=== PATIENT | female | born 1970 | race Caucasian/White ===

== ENCOUNTER 2018-07-04 23:52 | Inpatient (IN) | END 2018-07-06 20:30 | disposition home or self-care (01) | DRG 812 ==

== ENCOUNTER 2018-07-26 10:32 | Emergency (ER) | END 2018-07-26 13:33 | disposition home or self-care (01) ==

== ENCOUNTER 2018-09-24 05:24 | Emergency (ER) | payer OTHER ==
[~2018-09-24] VITALS: Ht 157.5 cm; Wt 74.0 kg
[~2018-09-24 05:24] MED LIST: DOCU-216 PO; ORTNOV PO; UDFER PO
[2018-09-24 05:25] VITALS: Ht 157.5 cm; Wt 74.0 kg
[2018-09-24] MEDS ORDERED: SOD CHLORIDE 0.9% 1,000 ML IV STA (05:36)
[2018-09-24] MEDS ORDERED: MAGNESIUM SULFATE 1 GM/D5W 100 ML IVPB ONE (06:00)
[2018-09-24] MEDS ORDERED: ADENOSINE 6 MG INJ IV ONE (06:00)
--- NOTE | 2018-09-24 06:35 | ERD ---
ER Documentation Chief Complaint Chief Complaint PT C/O PALPITATIONS AAND SOB X30 MIN, DENIES ANY PAIN HPI 48-year-old female recent history of new onset SVT currently wearing a Holter monitor. The patient presents with palpitations. She notes some mild discomfort in the chest area. She describes mild associated shortness of delbert ath. No pleuritic pain fevers chills or cough. This is very similar to her presentation of SVT in July. She is not currently taking any medication for this. ROS All systems reviewed and are negative except as per history of present illness. Medications Home Meds Active Scripts Metoprolol Succinate* (Toprol XL*) 25 Mg Tab.sr.24h, 25 MG PO DAILY, #30 TAB Prov:SURENDRA HERNANDEZ MD 09/24/18 Norethindrone-Ethinyl Estradiol (Ortho-Novum ()) 0.035-1 Mg Tablet, 1 TAB PO DAILY, #28 TAB Prov:MYLES COLBY MD 07/26/18 Docusate Sodium (Dok) 100 Mg Capsule, 100 MG PO BID PRN for CONSTIPATION for 1 Day, CAP otc Prov:JIHAN DWYER MD 07/06/18 Ferrous Sulfate (Ferrous Sulfate) 300 Mg/5 Ml Liquid, 300 MG PO BID for 30 Days otc Prov:JIHAN DWYER MD 07/06/18 Allergies Allergies: Coded Allergies: No Known Allergy (Unverified , 07/26/18) PMhx/Soc History of Surgery: Yes (sx to stop vaginal bleeding (cannot remember name)) Anesthesia Reaction: No Hx Neurological Disorder: No Hx Respiratory Disorders: No Hx Cardiac Disorders: Yes (SVT) Hx Psychiatric Problems: No Hx Miscellaneous Medical Probl: No Hx Alcohol Use: No Hx Substance Use: No Hx Tobacco Use: No Smoking Status: Never smoker FmHx Family History: No diabetes Physical Exam Vitals Vital Signs Date Temp Pulse Resp B/P (MAP) Pulse Ox O2 O2 Flow FiO2 Time Delivery Rate 09/24/18 74 17 112/77 97 Room Air 06:10 (89) 09/24/18 96.6 210 19 135/55 100 05:25 (81) Physical Exam General: Well developed, well nourished, no acute distress Head: Normocephalic, atraumatic. Eyes: Pupils equally reactive, EOM intact ENT: Moist mucous membranes Neck: Supple, no lymphadenopathy Respiratory: Lungs clear bilaterally, no distress Cardiovascular: Tachycardia, no murmurs, rubs, or gallops Abdominal: Soft, non-tender, non-distended, no peritoneal signs : Deferred MSK: No edema, no unilateral swelling, 5/5 strength Neurologic: Alert and oriented, moving all extremities, normal speech, no focal weakness, no cerebellar signs Skin: No rash Psych: Normal mood Result Diagram: 09/24/18 0550 09/24/18 0550 Results 24 hrs Laboratory Tests Test 09/24/18 05:50 White Blood Count 10.3 10^3/ul Red Blood Count 4.92 10^6/ul Hemoglobin 12.8 g/dl Hematocrit 42.6 % Mean Corpuscular Volume 86.6 fl Mean Corpuscular Hemoglobin 26.0 pg Mean Corpuscular Hemoglobin Concent 30.0 g/dl Red Cell Distribution Width 17.6 % Platelet Count 225 10^3/UL Mean Platelet Volume 11.5 fl Immature Granulocytes % 0.200 % Neutrophils % 52.4 % Lymphocytes % 39.9 % Monocytes % 6.2 % Eosinophils % 1.2 % Basophils % 0.1 % Nucleated Red Blood Cells % 0.0 /100WBC Immature Granulocytes # 0.020 10^3/ul Neutrophils # 5.4 10^3/ul Lymphocytes # 4.1 10^3/ul Monocytes # 0.6 10^3/ul Eosinophils # 0.1 10^3/ul Basophils # 0.0 10^3/ul Nucleated Red Blood Cells # 0.0 10^3/ul Sodium Level 143 mmol/L Potassium Level 3.4 mmol/L Chloride Level 105 mmol/L Carbon Dioxide Level 21 mmol/L Anion Gap 17 Blood Urea Nitrogen 18 mg/dl Creatinine 0.91 mg/dl Est Glomerular Filtrat Rate mL/min > 60 mL/min Glucose Level 145 mg/dl Calcium Level 8.6 mg/dl Troponin I < 0.012 ng/ml Current Medications Medications Dose Sig/Alberto Start Time Status Last (Trade) Ordered Route PRN Stop Time Admin Dose Reason Admin Sodium 1,000 ml @ Q1H STAT 09/24/18 DC 09/24/18 Chloride 1,000 mls/hr IV 05:36 05:45 09/24/18 06:35 Adenosine 6 mg ONCE ONCE 1/13/19 DC 09/24/18 (Adenosine) IV 06:00 05:45 09/24/18 06:01 Magnesium 100 ml @ ONCE ONCE 09/24/18 DC 09/24/18 Sulfate/ 100 mls/hr IVPB 06:00 06:00 Dextrose 09/24/18 06:59 Potassium 20 meq ONCE STAT 09/24/18 DC Chloride PO 07:08 (Klor-Con 20) 09/24/18 07:09 Procedures/MDM EKG, MONITORS, & DIAGNOSTIC IMAGING: EKG: I reviewed and interpreted a 12-lead EKG. Rhythm: Narrow complex regular tachycardia in the 200s ST Changes: No contiguous ST segment elevations T waves: No contiguous T wave inversions Impression: SVT Repeat EKG EKG: I reviewed and interpreted a 12-lead EKG. Rhythm: Normal sinus rhythm ST Changes: No contiguous ST segment elevations T waves: No contiguous T wave inversions Impression: [No evidence of acute cardiac ischemia] Chest x-ray: I reviewed and interpreted a 1 view of the chest Mediastinum: No enlargement Cardiac silhouette: No cardiomegaly Airspace: Clear lung gant bilaterally without evidence of pneumothorax Bones: No evidence of fracture PROCEDURES: Chemical cardioversion Patient was verbally consented and states understanding of risk benefits and alternatives. Emergency airway equipment was available. The patient was placed on the monitor, pacer pads and defibrillator was attached to the patient. The patient was given 6 mg of adenosine via push with no successful response. The patient was given 12 mg of adenosine via push with appropriate response and conversion to normal sinus rhythm. The patient tolerated procedure well without complications. LAB INTERPRETATION: * Slight hypokalemia. Negative troponin. MEDICAL DECISION MAKING: Patient presents with an exacerbation of supraventricular tachycardia. The patient has a mild fluttering and discomfort in the chest and warrants troponin. I do not believe underlying etiology is cardiac ischemia. ER COURSE: * Upon arrival the patient was placed on the monitor and had cardioversion as documented above. The patient is now in normal sinus rhythm * Patient was given IV fluids and magnesium for stabilization * Potassium orally repleted * The patient continues to be resting comfortably with no evidence of endorgan dysfunction. * I discussed the case with Dr. Gilliam who agrees with the plan of care. He recommends metoprolol XL 25 once daily and follow-up on an outpatient basis with her community board member. I will also provide referral information to him. The patient cannot recall contact information for her managing provider CONSULTATION: Cardiology as above DISPOSITION PLAN: The patient does not have an identifiable emergent medical condition that williams ts inpatient hospitalization at this time. The patient is deemed safe for discharge with outpatient follow-up. We discussed follow up with the patient's primary care doctor within 24 to 48 hours as needed. We also discussed return to the emergency room for worsening symptoms or worsening condition. Outpatient referral: Cardiology Discharge Medications: Metoprolol XL 25 mg once daily Critical Care Note: Total time: 35 minutes Indication/Organ System Threat: Tachyarrhythmia requiring cardioversion I spent the above amount of critical care time with the patient, not including billable procedures. This included chart review, consultations, repeat bedside evaluations, and titration of appropriate medications to prevent cardiopulmonary or respiratory collapse. Departure Diagnosis: Primary Impression: SVT (supraventricular tachycardia) Additional Impression: Hypokalemia Condition: Stable SURENDRA HERNANDEZ MD Sep 24, 2018 06:35
[2018-09-24] MEDS ORDERED: ADENOSINE 3 MG/ML SYRINGE IV ONE (07:00)
[2018-09-24] MEDS ORDERED: POTASSIUM CHLORIDE (SR) 20 MEQ TAB PO STA (07:08)
[2018-09-24] MEDS ORDERED: METO-335 PO (07:09)
[2018-09-24 07:45] VITALS: BP 121/71; PULSE 75; RESP 17
== END 2018-09-24 07:08 | disposition home or self-care (01) ==
LOC: E/R 05:24
DX: I47.1 Supraventricular tachycardia (principal); E87.6 Hypokalemia
CPT/HCPCS: 36415; 80048; 84484; 85025; 93005; 96374; 96375; J0153; J3475; J7030; Z7502; Z7610

== ENCOUNTER 2018-10-19 00:22 | Observation (INO) | payer OTHER ==
[~2018-10-19] VITALS: Ht 157.5 cm; Wt 73.2 kg
[~2018-10-19 00:22] MED LIST changes: +METO-335 PO
[2018-10-19 00:28] VITALS: Ht 157.5 cm; Wt 73.2 kg
[2018-10-19] MEDS ORDERED: SOD CHLORIDE 0.9% 1,000 ML IV STA (00:29)
[2018-10-19] MEDS ORDERED: SOD CHLORIDE 0.9% 1,000 ML IV SCH (02:41)
--- NOTE | 2018-10-19 02:43 | ERD ---
ER Documentation Chief Complaint Chief Complaint paliptations,dizziness,scheduled for ablation in the morning HPI This is a 48-year female complains of palpitations and dizziness 1 hour prior to arrival. History of multiple bouts of SVT and is actually scheduled for an ablation in the morning. Denies fevers or chills denies chest pain. Does feel lightheaded and feel like she is going to pass out. ROS All systems reviewed and are negative except as per history of present illness. Medications Home Meds Active Scripts Metoprolol Succinate* (Toprol XL*) 25 Mg Tab.sr.24h, 25 MG PO DAILY, #30 TAB Prov:SURENDRA HERNANDEZ MD 09/24/18 Norethindrone-Ethinyl Estradiol (Ortho-Novum ()) 0.035-1 Mg Tablet, 1 TAB PO DAILY, #28 TAB Prov:MYLES COLBY MD 07/26/18 Docusate Sodium (Dok) 100 Mg Capsule, 100 MG PO BID PRN for CONSTIPATION for 1 Day, CAP otc Prov:JIHAN DWYER MD 07/06/18 Ferrous Sulfate (Ferrous Sulfate) 300 Mg/5 Ml Liquid, 300 MG PO BID for 30 Days otc Prov:JIHAN DWYER MD 07/06/18 Allergies Allergies: Coded Allergies: No Known Allergy (Unverified , 09/29/18) PMhx/Soc History of Surgery: Yes (sx to stop vaginal bleeding (cannot remember name)) Anesthesia Reaction: No Hx Neurological Disorder: No Hx Respiratory Disorders: No Hx Cardiac Disorders: Yes (SVT, PALPITATIONS) Hx Psychiatric Problems: No Hx Miscellaneous Medical Probl: Yes Hx Alcohol Use: No Hx Substance Use: No Hx Tobacco Use: No Smoking Status: Never smoker Physical Exam Vitals Vital Signs Date Temp Pulse Resp B/P (MAP) Pulse Ox O2 O2 Flow FiO2 Time Delivery Rate 10/19/18 76 15 113/81 100 Room Air 01:16 (92) 10/19/18 97.3 187 18 85/44 (58) 99 00:28 Physical Exam Const: No acute distress Head: Atraumatic Eyes: Normal Conjunctiva ENT: Normal External Ears, Nose and Mouth. Neck: Full range of motion. No meningismus. Resp: Clear to auscultation bilaterally Cardio: Regular rate and rhythm, no murmurs Abd: Soft, non tender, non distended. Normal bowel sounds Skin: No petechiae or rashes Back: No midline or flank tenderness Ext: No cyanosis, or edema Neur: Awake and alert Psych: Normal Mood and Affect Result Diagram: 10/19/1811210/19/18112 Results 24 hrs Laboratory Tests Test 10/19/18 01:13 White Blood Count 8.1 10^3/ul Red Blood Count 4.87 10^6/ul Hemoglobin 13.0 g/dl Hematocrit 41.4 % Mean Corpuscular Volume 85.0 fl Mean Corpuscular Hemoglobin 26.7 pg Mean Corpuscular Hemoglobin Concent 31.4 g/dl Red Cell Distribution Width 17.0 % Platelet Count 196 10^3/UL Mean Platelet Volume 11.3 fl Immature Granulocytes % 0.200 % Neutrophils % 72.9 % Lymphocytes % 20.2 % Monocytes % 6.0 % Eosinophils % 0.6 % Basophils % 0.1 % Nucleated Red Blood Cells % 0.0 /100WBC Immature Granulocytes # 0.020 10^3/ul Neutrophils # 5.9 10^3/ul Lymphocytes # 1.6 10^3/ul Monocytes # 0.5 10^3/ul Eosinophils # 0.1 10^3/ul Basophils # 0.0 10^3/ul Nucleated Red Blood Cells # 0.0 10^3/ul Sodium Level 140 mmol/L Potassium Level 3.9 mmol/L Chloride Level 108 mmol/L Carbon Dioxide Level 23 mmol/L Anion Gap 9 Blood Urea Nitrogen 17 mg/dl Creatinine 1.12 mg/dl Est Glomerular Filtrat Rate mL/min 52 mL/min Glucose Level 191 mg/dl Calcium Level 9.3 mg/dl Total Bilirubin 0.1 mg/dl Direct Bilirubin 0.00 mg/dl Indirect Bilirubin 0.1 mg/dl Aspartate Amino Transf (AST/SGOT) 28 IU/L Alanine Aminotransferase (ALT/SGPT) 27 IU/L Alkaline Phosphatase 74 IU/L Creatine Kinase 55 IU/L Creatine Kinase Index 1.1 Creatinine Kinase MB (Mass) 0.63 ng/ml Troponin I 0.018 ng/ml B-Type Natriuretic Peptide Pending Total Protein 7.8 g/dl Albumin 4.3 g/dl Globulin 3.50 g/dl Albumin/Globulin Ratio 1.22 Current Medications Medications Dose Sig/Alberto Start Time Status Last (Trade) Ordered Route PRN Stop Time Admin Dose Reason Admin Sodium 1,000 ml @ Q1H STAT 10/19/18 DC 10/19/18 Chloride 1,000 mls/hr IV 00:29 10/19/18 01:18 01:28 Procedures/MDM EKG: Rate/Rhythm: [Normal Sinus Rhythm] QRS, ST, T-waves: [No changes consistent w/ acute ischemia] Impression: [No evidence of ischemia or arrhythmia] Chest X-ray 1V Interpreted by me: Soft Tissue: No acute abnormalities Bones: No acute abnormalities Mediastinum/Cardiac Silhouette/Lungs: [No acute abnormalities] Emergency department course: Patient triaged immediately bed in the ER. Placed on front clerk. Intravenous access was established was started on IV fluids where she converted on her own. Blood pressure normalized as well. Medical decision makin-year-old female with severe SVT. Given her hypotension and severely elevated heart rates at the time of triage, patient will be admitted for further evaluation and management. Hospitalist made aware of patient's efficiency clerk who also has privileges here Departure Diagnosis: Primary Impression: Palpitations Condition: Serious KALEE ERICKSON Oct 19, 2018 02:43
[2018-10-19] MEDS ORDERED: NACL 0.9% 3 ML SYG IV SCH (03:00)
[2018-10-19] MEDS ORDERED: DOCUSATE SODIUM 100 MG CAP PO PRN (03:00)
[2018-10-19] MEDS ORDERED: NITROGLYCERIN (SL) 0.4 MG TAB SL PRN (03:00)
[2018-10-19] MEDS ORDERED: ACETAMINOPHEN 325 MG TAB PO PRN (03:00)
[2018-10-19] MEDS ORDERED: ONDANSETRON 4 MG INJ IV PRN (03:00)
[2018-10-19] MEDS ORDERED: ADENOSINE 6 MG INJ IV PRN (03:00)
[2018-10-19] MEDS ORDERED: BISACODYL (EC) 5 MG TAB PO PRN (03:00)
--- NOTE | 2018-10-19 03:53 | HP ---
Date/Time of Note Date/Time of Note DATE: 10/19/18 TIME: 03:38 Assessment/Plan VTE Prophylaxis SCD applied (from Nsg): Yes Pharmacological prophylaxis: NA/contraindicated Pharm contraindication: low risk/ambulating Lines/Catheters IV Catheter Type (from Nrsg): Saline Lock Assessment/Plan Hospital Course This is a 48-year female being admitted to the telemetry floor for: #1 SVT: Spontaneous conversion to normal sinus rhythm without any intervention. Patient did receive a bolus of normal saline. At the current time patient is in normal sinus rhythm. She reports feeling better. She is concerned though that she will miss her appointment for ablation this morning after that hospital. Will consult cardiology for further guidance. #2 History of anemia: Currently hemoglobin is 13 and MCV is within normal values. Resume ferrous sulfate as indicated #3 Irregular menstrual periods: Continue control as indicated outpatient #4 DVT GI prophylaxis: SCDs, no GI prophylaxis indicated CODE STATUS: Full code Further treatment strategy will be implemented for clinical course Result Diagram: 10/19/1811210/19/18 0113 Results 24hrs Laboratory Tests Test 10/19/18 01:13 White Blood Count 8.1 # Red Blood Count 4.87 Hemoglobin 13.0 Hematocrit 41.4 Mean Corpuscular Volume 85.0 Mean Corpuscular Hemoglobin 26.7 L Mean Corpuscular Hemoglobin Concent 31.4 L Red Cell Distribution Width 17.0 H Platelet Count 196 Mean Platelet Volume 11.3 H Immature Granulocytes % 0.200 Neutrophils % 72.9 Lymphocytes % 20.2 Monocytes % 6.0 Eosinophils % 0.6 Basophils % 0.1 Nucleated Red Blood Cells % 0.0 Immature Granulocytes # 0.020 Neutrophils # 5.9 Lymphocytes # 1.6 Monocytes # 0.5 Eosinophils # 0.1 Basophils # 0.0 Nucleated Red Blood Cells # 0.0 Sodium Level 140 Potassium Level 3.9 Chloride Level 108 Carbon Dioxide Level 23 Anion Gap 9 Blood Urea Nitrogen 17 Creatinine 1.12 H Est Glomerular Filtrat Rate mL/min 52 L Glucose Level 191 Calcium Level 9.3 Total Bilirubin 0.1 L Direct Bilirubin 0.00 Indirect Bilirubin 0.1 Aspartate Amino Transf (AST/SGOT) 28 Alanine Aminotransferase (ALT/SGPT) 27 Alkaline Phosphatase 74 Creatine Kinase 55 Creatine Kinase Index 1.1 Creatinine Kinase MB (Mass) 0.63 Troponin I 0.018 B-Type Natriuretic Peptide 255 H Total Protein 7.8 Albumin 4.3 Globulin 3.50 H Albumin/Globulin Ratio 1.22 HPI/ROS Admit Date/Time Admit Date/Time Hx of Present Illness Chief complaint: Dizziness, fast heart rate This is a 48-year female complains of palpitations and dizziness 1 hour prior to arrival. History of multiple bouts of SVT and is actually scheduled for an ablation in the [facility] and [facility]. Her bilingual nanny is Dr. Escudero.. Denies fevers or chills denies chest pain. Does feel lightheaded and feel like she is going to pass out. Patient arrived in the emergency department she was noted to be in SVT in the 180s. Patient spontaneously converted back to normal sinus rhythm. She was given a bolus of fluid. Currently at the bedside she has a normal sinus rhythm at approximately 80 bpm. At the current time patient reports that she feeling like her normal self. She reports that she stopped taking her metoprolol approximately 3-day goes ago as she was instructed to do so prior to her procedure. EKG performed in the ER showed normal sinus rhythm at approximately 65 bpm with no STfor loosening or T wave of normalities concerning for ischemia. Allergies: NKDA Medications: ferrous sulfate Metoprolol XL 25 mg Ortho-Novum control ROS Const: As per HPI Eyes : No pain discharge or redness or change in visual acuity ENT: No pain, sore throat, congestion, congestion, dysphagia or discharge Respiratory: No shortness of breath, cough, sputum, wheezing, or pleuritic pain Cardiovascular as per HPI GI : no change in appetite, abdominal pain, nausea, vomiting, diarrhea, constipation, or change in the color his stool Genitourinary: No dysuria, hematuria, flank pain , discharge or CVA tenderness Musculoskeletal: No joint pain, back pain, neck pain, restricted range of motion in neck or joints Skin: No rash, bruising or hives Neuro: No headache, dizziness, syncope, seizure, focal weakness Endocrine: No polyuria, polydipsia, temperature intolerance Psych: No hallucination, depression, anxiety or suicidal ideation PMH/Family/Social Past Medical History SVT, irregular menstrual periods, Anemia Medications Current Medications Adenosine (Adenosine) 6 mg PRN PRN IV SVT ; Start 10/19/18 at 03:00 Sodium Chloride 1,000 ml @ 80 mls/hr [id number] IV ; Start 10/19/18 at 02:41 IV Flush (NS 3 ml) 3 ml PER PROTOCOL IV ; Start 10/19/18 at 03:00 Ondansetron HCl (Zofran Inj) 4 mg Q6H PRN IV NAUSEA/VOMITING; Start 10/19/18 at 03:00 Nitroglycerin (Nitroglycerin (Sl Tab) 0.4 Mg) 1 tab Q5M PRN SL .CHEST PAIN; Start 10/19/18 at 03:00 Acetaminophen (Tylenol Tab) 650 mg Q6H PRN PO .PAIN 1-3 OR TEMP; Start 10/19/18 at 03:00 Docusate Sodium (Colace) 100 mg Q12H PRN PO .CONSTIPATION; Start 10/19/18 at 03:00 Bisacodyl (Dulcolax) 5 mg DAILY PRN PO .CONSTIPATION; Start 10/19/18 at 03:00 Coded Allergies: No Known Allergy (Unverified , 09/29/18) Past Surgical History History of vaginal procedure, unknown name Past Surgical Hx: other Family History Significant Family History: no pertinent family hx Social History Alcohol Use: none Smoking Status: Never smoker Drug Use: none Exam/Review of Systems Vital Signs Vitals Vital Signs Date Temp Pulse Resp B/P (MAP) Pulse Ox O2 O2 Flow FiO2 Time Delivery Rate 10/19/18 76 15 113/81 100 Room Air 01:16 (92) 10/19/18 97.3 00:28 Exam Exam General: Patient is a pleasant female currently lying in bed in no acute distress HEENT: Atraumatic, normocephalic. The pupils are equal, round and reactive. Extraocular motor are intact Neck: Supple with full range of motion. No rigidity or meningismus Chest: Nontender Lungs: Clear to auscultation bilaterally no crackles rales or wheezing Heart: Normal S1-S2, Regular rhythm and rate. No overt murmurs appreciated auscultation Abdomen: Soft , nontender, nondistended , bowel sounds are present. No guarding no rebound tenderness , No masses or organomegaly. No costovertebral temporal angle mass Extremities: Normal to inspection, no edema no cyanosis Neurologic: Normal mental status, speech normal, cranial nerves II through XII are intact, motor and sensory are intact, no focal weakness NIKKI,KAT Oct 19, 2018 03:48
[2018-10-19 05:09] VITALS: BP 107/74; PULSE 64; RESP 21
[2018-10-19] MEDS ORDERED: MULTI PO (05:09)
[2018-10-19] MEDS ORDERED: OMEG-135 PO (05:09)
--- NOTE | 2018-10-19 05:18 | DS ---
Date/Time of Note Date/Time of Note DATE: 10/19/18 TIME: 05:11 Discharge Summary Admission/Discharge Info Admit Date/Time 10/19/2018 Discharge Date/Time 10/19/2018 Discharge Diagnosis 1. SVTStable, converted spontaneously back to normal sinus rhythm. Patient Condition: Stable Hx of Present Illness Chief complaint: Dizziness, fast heart rate This is a 48-year female complains of palpitations and dizziness 1 hour prior to arrival. History of multiple bouts of SVT and is actually scheduled for an ablation in the [facility] and [facility]. Her head teacher is Dr. Escudero.. Denies fevers or chills denies chest pain. Does feel lightheaded and feel like she is going to pass out. Patient arrived in the emergency department she was noted to be in SVT in the 180s. Patient spontaneously converted back to normal sinus rhythm. She was given a bolus of fluid. Currently at the bedside she has a normal sinus rhythm at approximately 80 bpm. At the current time patient reports that she feeling like her normal self. She reports that she stopped taking her metoprolol approximately 3-day goes ago as she was instructed to do so prior to her procedure. EKG performed in the ER showed normal sinus rhythm at approximately 65 bpm with no STfor loosening or T wave of normalities concerning for ischemia. Allergies: NKDA Medications: ferrous sulfate Metoprolol XL 25 mg Ortho-Novum control Hospital Course This is a 48-year female being admitted to the telemetry floor for: #1 SVT: Spontaneous conversion to normal sinus rhythm without any intervention. Patient did receive a bolus of normal saline. At the current time patient is in normal sinus rhythm. She reports feeling better. She is concerned though that she will miss her appointment for ablation this morning after that hospital. Will consult cardiology for further guidance. #2 History of anemia: Currently hemoglobin is 13 and MCV is within normal values. Resume ferrous sulfate as indicated #3 Irregular menstrual periods: Continue control as indicated outpatient #4 DVT GI prophylaxis: SCDs, no GI prophylaxis indicated CODE STATUS: Full code Further treatment strategy will be implemented for clinical course Hospital course: Patient was admitted to the hospital. She remained in normal sinus rhythm throughout her stay. She did not require any intervention as there was no repeated SVT noted. She did receive a bolus of normal saline. I did speak with the patient's head teacher over the phone in regards to the patient. Patient is scheduled to have a ablation for SVT later this morning and was supposed to be at [facility] at 6 AM. She has been waiting for this procedure for approximately 4 months. As the patient remained in normal sinus rhythm and stable in the hospital both the head teacher and I agreed that the patient would be stable for discharge so that she can proceed to have her procedure done today. I did discuss the case with the patient and she is agreeable to have a who is at the bedside with her xm1 tank driver to [facility] immediately upon being discharged. She denies any chest pain or shortness of breath. Again she is stable at the current time. Home Meds Active Scripts Metoprolol Succinate* (Toprol XL*) 25 Mg Tab.sr.24h, 25 MG PO DAILY, #30 TAB Prov:SURENDRA HERNANDEZ MD 09/24/18 Norethindrone-Ethinyl Estradiol (Ortho-Novum ()) 0.035-1 Mg Tablet, 1 TAB PO DAILY, #28 TAB Prov:MYLES COLBY MD 07/26/18 Docusate Sodium (Dok) 100 Mg Capsule, 100 MG PO BID PRN for CONSTIPATION for 1 Day, CAP otc Prov:JIHAN DWYER MD 07/06/18 Ferrous Sulfate (Ferrous Sulfate) 300 Mg/5 Ml Liquid, 300 MG PO BID for 30 Days otc Prov:JIHAN DWYER MD 07/06/18 Reported Medications Multivitamins* (Theragran*) 1 Tab Tab, 1 TAB PO DAILY, TAB 10/19/18 [facility]-3 Fatty Acids/Fish Oil (Fish Oil 1,000 mg Capsule) 1 Each Capsule, 1 EACH PO, CAP 10/19/18 Primary Care Provider Spencer Escudero MD Time spent on discharge: > 30 minutes Pending Labs Laboratory Tests Test 10/19/18 01:13 White Blood Count 8.1 10^3/ul (4.8-10.8) Red Blood Count 4.87 10^6/ul (4.20-5.40) Hemoglobin 13.0 g/dl (12.0-16.0) Hematocrit 41.4 % (37.0-47.0) Mean Corpuscular Volume 85.0 fl (82.0-101.0) Mean Corpuscular Hemoglobin 26.7 pg (29.0-33.0) Mean Corpuscular Hemoglobin Concent 31.4 g/dl (32.0-37.0) Red Cell Distribution Width 17.0 % (11.5-14.5) Platelet Count 196 10^3/UL (140-415) Mean Platelet Volume 11.3 fl (7.4-10.4) Immature Granulocytes % 0.200 % (0.001-0.429) Neutrophils % 72.9 % (39.0-77.0) Lymphocytes % 20.2 % (15.0-51.0) Monocytes % 6.0 % (0.0-11.0) Eosinophils % 0.6 % (0.0-7.0) Basophils % 0.1 % (0.0-2.0) Nucleated Red Blood Cells % 0.0 /100WBC (0.0-0.0) Immature Granulocytes # 0.020 10^3/ul (0.0-0.031) Neutrophils # 5.9 10^3/ul (1.6-7.5) Lymphocytes # 1.6 10^3/ul (0.8-2.9) Monocytes # 0.5 10^3/ul (0.3-0.9) Eosinophils # 0.1 10^3/ul (0.0-0.5) Basophils # 0.0 10^3/ul (0.0-0.1) Nucleated Red Blood Cells # 0.0 10^3/ul (0.0-0.0) Prothrombin Time 13.1 Sec (11.9-14.9) Prothrombin Time Ratio 1.0 INR International Normalized Ratio 0.98 Activated Partial Thromboplast Time 24.8 Sec (23.0-35.0) Sodium Level 140 mmol/L (135-144) Potassium Level 3.9 mmol/L (3.5-5.1) Chloride Level 108 mmol/L (97-110) Carbon Dioxide Level 23 mmol/L (21-31) Anion Gap 9 (5-13) Blood Urea Nitrogen 17 mg/dl (7-20) Creatinine 1.12 mg/dl (0.44-1.00) Est Glomerular Filtrat Rate mL/min 52 mL/min (>60) Glucose Level 191 mg/dl (70-220) Calcium Level 9.3 mg/dl (8.4-10.2) Total Bilirubin 0.1 mg/dl (0.2-1.3) Direct Bilirubin 0.00 mg/dl (0.00-0.20) Indirect Bilirubin 0.1 mg/dl (0-1.1) Aspartate Amino Transf (AST/SGOT) 28 IU/L (15-46) Alanine Aminotransferase (ALT/SGPT) 27 IU/L (13-69) Alkaline Phosphatase 74 IU/L (42-121) Creatine Kinase 55 IU/L (23-200) Creatine Kinase Index 1.1 Creatinine Kinase MB (Mass) 0.63 ng/ml (0.0-2.4) Troponin I 0.018 ng/ml (0.000-0.120) B-Type Natriuretic Peptide 255 PG/ML (0-125) Total Protein 7.8 g/dl (6.1-8.1) Albumin 4.3 g/dl (3.3-4.9) Globulin 3.50 g/dl (1.3-3.2) Albumin/Globulin Ratio 1.22 KAT JORDAN Oct 19, 2018 05:18
--- NOTE | 2018-10-19 05:20 | PDOCDIS ---
Discharge Instructions DIAGNOSIS Discharge Diagnosis 1. SVTStable, converted spontaneously back to normal sinus rhythm. CONDITION [id number] Patient Condition: [id number] Stable HOME CARE INSTRUCTIONS: [id number] Diet Instructions: [id number] Low Fat /Cholesterol ACTIVITY: [id number] Activity Restrictions: [id number] Slowly Increase Activity FOLLOW UP/APPOINTMENTS Follow-up Plan Please proceed to [facility] for your scheduled cardiac ablation today at 6 AM with your breaker mechanic . Further instructions as per your breaker mechanic after your ablation. KAT JORDAN Oct 19, 2018 05:20
== END 2018-10-19 05:39 | disposition home or self-care (01) ==
LOC: E/R 00:22 → TEL 02:44 → E/R 05:42 → CANBEDREQ 07:14
PROVIDERS: ADMIT Family Medicine; ATTEND Family Medicine
DX: I47.1 Supraventricular tachycardia (principal); Z86.79 Personal history of other diseases of the circulatory system; N92.6 Irregular menstruation, unspecified
CPT/HCPCS: 36415; 71045; 80053; 80061; 82550; 82553; 83036; 83735; 83880; 84443; 84484; 85025; 85610; 85730; 93005; J7030; Z7500; Z7502; G0378

== ENCOUNTER 2019-03-03 01:20 | Emergency (ER) | payer OTHER ==
[~2019-03-03] VITALS: Ht 157.5 cm; Wt 77.4 kg
[~2019-03-03 01:20] MED LIST changes: -DOCU-216 PO; -METO-335 PO; +OMEG-135 PO
[2019-03-03 01:29] VITALS: Ht 157.5 cm; Wt 77.4 kg
[2019-03-03] MEDS ORDERED: SOD CHLORIDE 0.9% 1,000 ML IV STA (01:40)
--- NOTE | 2019-03-03 01:55 | ERD ---
ER Documentation Chief Complaint Chief Complaint intermittent episodes of palpitations since 2330 w/ mild CP. hx of SVT HPI This is a 48-year-old female with a history of SVT who presents to the emergency with 2-3 episodes of palpitations starting around midnight this morning. Patient denied any significant chest pain though it was noted in triage. She denies any pressure. She just noted palpitations. She states this is similar in the past to related episodes of SVT. She has sinus rhythm currently. She denies any prodrome of pleuritic pain fevers chills or cough, no headache. Patient feels at baseline now. ROS All systems reviewed and are negative except as per history of present illness. Medications Home Meds Active Scripts Norethindrone-Ethinyl Estradiol (Ortho-Novum ()) 0.035-1 Mg Tablet, 1 TAB PO DAILY, #28 TAB Prov:MYLES COLBY MD 07/26/18 Ferrous Sulfate (Ferrous Sulfate) 300 Mg/5 Ml Liquid, 300 MG PO BID for 30 Days otc Prov:JIHAN DWYER MD 07/06/18 Reported Medications [place]-3 Fatty Acids/Fish Oil (Fish Oil 1,000 mg Capsule) 1 Each Capsule, 1 EACH PO, CAP 10/19/18 Allergies Allergies: Coded Allergies: No Known Allergy (Unverified , 09/29/18) PMhx/Soc History of Surgery: Yes (sx to stop vaginal bleeding (cannot remember name)) Anesthesia Reaction: No Hx Neurological Disorder: No Hx Respiratory Disorders: No Hx Cardiac Disorders: Yes (SVT, PALPITATIONS) Hx Psychiatric Problems: No Hx Miscellaneous Medical Probl: Yes Hx Alcohol Use: No Hx Substance Use: No Hx Tobacco Use: No Smoking Status: Never smoker FmHx Family History: No diabetes Physical Exam Vitals Vital Signs Date Temp Pulse Resp B/P (MAP) Pulse Ox O2 O2 Flow FiO2 Time Delivery Rate 03/03/19 96.9 68 16 140/81 100 Room Air 01:32 (100) 03/03/19 96.9 69 16 141/85 100 01:29 (103) Physical Exam General: Well developed, well nourished, no acute distress Head: Normocephalic, atraumatic. Eyes: Pupils equally reactive, EOM intact ENT: Moist mucous membranes Neck: Supple, no lymphadenopathy Respiratory: Lungs clear bilaterally, no distress Cardiovascular: RRR, no murmurs, rubs, or gallops Abdominal: Soft, non-tender, non-distended, no peritoneal signs : Deferred MSK: No edema, no unilateral swelling, 5/5 strength Neurologic: Alert and oriented, moving all extremities, normal speech, no focal weakness, no cerebellar signs Skin: No rash Psych: Normal mood Result Diagram: 03/03/19 0138 03/03/19 0138 Results 24 hrs Laboratory Tests Test 03/03/19 01:38 White Blood Count 6.1 10^3/ul Red Blood Count 4.95 10^6/ul Hemoglobin 14.7 g/dl Hematocrit 44.9 % Mean Corpuscular Volume 90.7 fl Mean Corpuscular Hemoglobin 29.7 pg Mean Corpuscular Hemoglobin Concent 32.7 g/dl Red Cell Distribution Width 12.7 % Platelet Count 238 10^3/UL Mean Platelet Volume 10.9 fl Immature Granulocytes % 0.200 % Neutrophils % 50.8 % Lymphocytes % 38.7 % Monocytes % 8.0 % Eosinophils % 2.1 % Basophils % 0.2 % Nucleated Red Blood Cells % 0.0 /100WBC Immature Granulocytes # 0.010 10^3/ul Neutrophils # 3.1 10^3/ul Lymphocytes # 2.4 10^3/ul Monocytes # 0.5 10^3/ul Eosinophils # 0.1 10^3/ul Basophils # 0.0 10^3/ul Nucleated Red Blood Cells # 0.0 10^3/ul Sodium Level 145 mmol/L Potassium Level 4.2 mmol/L Chloride Level 106 mmol/L Carbon Dioxide Level 26 mmol/L Anion Gap 13 Blood Urea Nitrogen 20 mg/dl Creatinine 0.74 mg/dl Est Glomerular Filtrat Rate mL/min > 60 mL/min Glucose Level 100 mg/dl Calcium Level 9.5 mg/dl Troponin I < 0.012 ng/ml Current Medications Medications Dose Sig/Alberto Start Time Status Last (Trade) Ordered Route PRN Stop Time Admin Dose Reason Admin Sodium 1,000 ml @ Q1H STAT 03/03/19 03/03/19 Chloride 1,000 mls/hr IV 01:40 01:55 03/03/19 02:39 Procedures/MDM EKG, MONITORS, & DIAGNOSTIC IMAGING: EKG: I reviewed and interpreted a 12-lead EKG. Rhythm: Normal sinus rhythm ST Changes: No contiguous ST segment elevations T waves: No contiguous T wave inversions Impression: No evidence of acute cardiac ischemia Chest x-ray: I reviewed and interpreted a 1 view of the chest Mediastinum: No enlargement Cardiac silhouette: No cardiomegaly Airspace: Clear lung gant bilaterally without evidence of pneumothorax Bones: No evidence of fracture LAB INTERPRETATION: I reviewed the laboratory testing and it shows no evidence of acute process MEDICAL DECISION MAKING: Patient has nonspecific palpitations without chest pain. Symptoms are likely consistent with possible runs of SVT versus nonspecific palpitations. I do not believe her clinical exam and presentation is consistent with pulmonary embolism dissection or acute coronary syndrome. Reassurance has been provided. Basic blood work to rule out electrolyte disturbance or evidence of cardiac ischemia would be reasonable. No indication for several enzymes or inpatient hospitalization at this time. Outpatient cardiology follow-up as scheduled in April. I recommended earlier follow-up on an outpatient basis. ER COURSE: * Patient remains in a sinus rhythm and otherwise asymptomatic. Laboratory testing is unrevealing. Patient can be safely discharged with close primary care and cardiology follow-up CONSULTATION: None DISPOSITION PLAN: The patient does not have an identifiable emergent medical condition that warrants inpatient hospitalization at this time. The patient is deemed safe for discharge with outpatient follow-up. We discussed follow up with the patient's primary care doctor within 24 to 48 hours as needed. We also discussed return to the emergency room for worsening symptoms or worsening condition. Outpatient referral: None required Discharge Medications: None required Departure Diagnosis: Primary Impression: Palpitations Condition: Stable SURENDRA HERNANDEZ MD Mar 03, 2019 01:55
[2019-03-03 02:41] VITALS: BP 141/81; PULSE 81; RESP 19
== END 2019-03-03 02:42 | disposition home or self-care (01) ==
LOC: E/R 01:20
DX: R00.2 Palpitations (principal)
CPT/HCPCS: 36415; 71045; 80048; 84484; 85025; J7030; Z7502; 93005